=== PATIENT | female | born 1935 | race Caucasian/White ===

== ENCOUNTER 2017-07-15 08:45 | Inpatient (IN) | payer MEDICARE, OTHER ==
[~2017-07-15] VITALS: Ht 167.6 cm; Wt 45.0 kg
[2017-07-15] MEDS ORDERED: normal saline 1000ML IV soln IVB ONE (08:55)
[2017-07-15] MEDS ORDERED: pantoprazole 40 MG vial IV ONE (08:55)
[2017-07-15 09:26] LABS: ISTAT CREATININE 2.3 mg/dL (0.6-1.1); ISTAT IONIZED CALCIUM 1.15 mmol/L (1.03-1.32); ISTAT K 4.6 mmol/L (3.5-5.1)
[2017-07-15 09:32] LABS: BASOPHILS % (AUTO) 0.1 % (0-1); EOSINOPHILS % (AUTO) 0 % (0-6); LYMPHOCYTES # (AUTO) 1.5 X10'3 (1.1-4.8); LYMPHOCYTES % (AUTO) 6.2 % (21-51); MEAN CORPUSCULAR HEMOGLOBIN 28.9 PG (27.0-31.0); MEAN CORPUSCULAR HGB CONC 32.9 % (33.0-36.5); MEAN CORPUSCULAR VOLUME 87.8 FL (78-98); MEAN PLATELET VOLUME 8.2 FL (7.4-10.4); MONOCYTES # (AUTO) 0.9 X10'3 (0-0.9); MONOCYTES % (AUTO) 3.7 % (2-12); NEUTROPHILS # (AUTO) 22.6 X10'3 (1.8-7.7); PLATELET COUNT 394 X10'3 (140-440); RED BLOOD COUNT 1.65 X10'6 (4.20-5.60); RED CELL DISTRIBUTION WIDTH 14.8 % (11.5-14.5)
[2017-07-15 09:38] LABS: HEMATOCRIT 14.5 % (35.0-45.0); HEMOGLOBIN 4.8 g/dl (12.0-16.0); WHITE BLOOD COUNT 25.1 X10'3 (4.5-11.0)
[2017-07-15 09:40] LABS: ISTAT HGB 5.1 g/dl (12.0-16.0)
[2017-07-15 09:47] LABS: INR 1.3 INR; PARTIAL THROMBOPLASTIN TIME 21 SECONDS (22-32)
[2017-07-15 10:03] LABS: ALANINE AMINOTRANSFERASE 14 U/L (12-78); ALBUMIN 2.1 G/DL (3.4-5.0); ALBUMIN/GLOBULIN RATIO 0.6 (1.1-1.5); ALKALINE PHOSPHATASE 59 IU/L (46-116); ANION GAP 23 (8-16); ASPARTATE AMINO TRANSFERASE 22 U/L (10-37); BILIRUBIN,TOTAL 0.2 MG/DL (0.1-1.0); BLOOD UREA NITROGEN 99 MG/DL (7-18); BUN/CREATININE RATIO 35.6 (6.6-38.0); CALCIUM 8.9 MG/DL (8.5-10.1); CHLORIDE 106 MMOL/L (99-107); CREATININE 2.78 MG/DL (0.40-0.90); GLUCOSE 174 MG/DL (70-104); LIPASE 224 U/L (73-393); POTASSIUM 4.7 MMOL/L (3.5-5.1); SODIUM 142 MMOL/L (135-145); TOTAL PROTEIN 5.4 G/DL (6.4-8.2); eGFR 16 ML/MIN
[2017-07-15 10:05] LABS: ISTAT TCO2 CONFIRMATION 13.2 mmol/l
[2017-07-15 10:12] LABS: CLARITY,URINE CLOUDY (Clear); COLOR,URINE YELLOW (Yellow); GLUCOSE, URINE NEGATIVE (Neg); KETONES,URINE TRACE mg/dl (Neg); LEUKOCYTE ESTERASE ,URINE NEGATIVE (Neg); NITRITES, URINE NEGATIVE (Neg); OCCULT BLOOD,URINE NEGATIVE (Neg); PROTEIN,URINE NEGATIVE (Neg); UA COLLECTION TYPE FOLEY CATH; UROBILINOGEN,URINE 0.2 E.U/dL (0.2-1.0)
[2017-07-15 10:31] LABS: PLATELET ESTIMATE NORMAL; TOTAL CELLS COUNTED 100
[2017-07-15 10:38] LABS: SQUAMOUS EPITHELIAL CELL,UR MANY /LPF (FEW)
[2017-07-15 10:40] LABS: BACTERIA,URINE 1+ /HPF (Neg)
[2017-07-15 10:41] LABS: HYALINE CASTS 0-3 /LPF (NEGATIVE); WBC,URINE 0-4 /HPF (0-4)
[2017-07-15 10:42] LABS: AMORPHOUS URATES 1+; TRANSITIONAL EPI CELLS,URINE FEW /HPF
[2017-07-15] MEDS ORDERED: morphine 4 MG/ML inj SYRINge IV ONE (11:05)
[2017-07-15] MEDS ORDERED: normal saline 1000ml 1,000 ML IV SCH (11:33)
[2017-07-15] MEDS ORDERED: acetaminophen 325mg tablet PO PRN ×2 (11:35)
[2017-07-15] MEDS ORDERED: morphine 4 MG/ML inj SYRINge IV PRN ×2 (11:35)
[2017-07-15] MEDS ORDERED: LORazepam 2 mg/ml vial IV PRN (11:35)
[2017-07-15] MEDS ORDERED: morphine 10mg/0.5ml (conc. morphine) oral syringe PO PRN (11:35)
[2017-07-15] MEDS ORDERED: magnesium hydroxide 30ml (MOM) UD suspension PO PRN (11:35)
[2017-07-15] MEDS ORDERED: mag hydrox/Alum hydrox/simeth 30ml oral suspension PO PRN (11:35)
[2017-07-15] MEDS ORDERED: ondansetron/PF 4mg/2ml inj IV PRN (11:35)
[2017-07-15 13:35] VITALS: BP 80/48
[2017-07-15 17:37] LABS: OCCULT BLOOD STOOL POSITIVE (Neg)
== END 2017-07-15 16:24 | disposition expired | DRG 377 ==
LOC: ER 08:46 → ED HOLD 11:33 → EDBEDREQ 11:50
PROVIDERS: ADMIT Family Medicine; ATTEND Family Medicine
PROC: 5A09357 Assistance with Respiratory Ventilation, Less than 24 Consecutive Hours, Continuous Positive Airway Pressure (ICD-10-PCS; principal; 2017-07-15)
DX: K92.2 Gastrointestinal hemorrhage, unspecified (principal); J69.0 Pneumonitis due to inhalation of food and vomit; R57.8 Other shock; N17.9 Acute kidney failure, unspecified; E87.2 Acidosis; D62 Acute posthemorrhagic anemia; E86.0 Dehydration; G30.9 Alzheimer's disease, unspecified; I10 Essential (primary) hypertension; I25.10 Atherosclerotic heart disease of native coronary artery without angina pectoris; F02.80 Dementia in other diseases classified elsewhere, unspecified severity, without behavioral disturbance, psychotic disturbance, mood disturbance, and anxiety; Z66 Do not resuscitate; Z95.810 Presence of automatic (implantable) cardiac defibrillator; Z79.899 Other long term (current) drug therapy; Z88.1 Allergy status to other antibiotic agents; Z88.8 Allergy status to other drugs, medicaments and biological substances
CPT/HCPCS: 71045; 80047; 80053; 81001; 82272; 83690; 84484; 85025; 85610; 85730; 86885; 86900; 86901; 86920; 94660; C1758; J7030